=== PATIENT | male | born 1980 | race Caucasian/White ===

== ENCOUNTER 2016-12-25 18:57 | Inpatient (IN) | payer BC ==
[2016-12-25 19:01] VITALS: BMI 31.6
[2016-12-25] MEDS ORDERED: ASPIRIN 81 MG CHEWABLE TABLETS PO ONE (19:16)
--- NOTE | 2016-12-25 19:16 | PDOC ---
History of Present Illness <Nilsa Root - Last Filed: 12/25/16 19:49> <Mary Kay Cisneros - Last Filed: 12/26/16 02:39> - General Chief Complaint: Blood Pressure Problem Stated Complaint: HTN. Time Seen by Provider: 12/25/16 19:11 - History of Present Illness Initial Comments: 12/25/16 19:43 The patient is a 36 year old male, with a significant past medical history of panic attacks, IDDM (8yrs), HTN (lisinopril), who presents to the emergency department with chest discomfort since yesterday with onset of palpitations and dyspnea today. The patient reports his chest discomfort feels like pressure today opposed to tightness yesterday. He states the discomfort is constant and anterior, without radiation of pain into upper extremities. He reports feeling "unable to take a deep breath." He reports he has been under a lot of stress recently. He reports being given 20 mg of bystolic around 6PM this evening in Dr. Romano office. The patient also had a normal stress test last year. She denies headache and dizziness. She denies fever, chills, nausea, vomit, diarrhea and constipation. She denies dysuria, frequency, urgency and hematuria. Allergies: NKDA Social history: denies tobacco use PCP - Dr. Hernandez (Nilsa Root) Past History <Nilsa Root - Last Filed: 12/25/16 19:49> - Past Medical History Anemia: No Asthma: No Cancer: No Cardiac Disorders: No CVA: No COPD: No CHF: No Dementia: No Diabetes: Yes GI Disorders: No Disorders: No HTN: Yes Hypercholesterolemia: No Liver Disease: No Seizures: No Thyroid Disease: No - Suicide/Smoking/Psychosocial Hx Smoking Status: Yes Smoking History: Former smoker Have you smoked in the past 12 months: No Number of Cigarettes Smoked Daily: 10 If you are a former smoker, when did you quit?: 2013 Information on smoking cessation initiated: No 'Breaking Loose' booklet given: 12/25/16 Hx Alcohol Use: No Drug/Substance Use Hx: No Substance Use Type: None <Mary Kay Cisneros - Last Filed: 12/26/16 02:39> - Past Medical History Allergies/Adverse Reactions: Allergies Allergy/AdvReac Type Severity Reaction Status Date / Time No Known Allergies Allergy Verified 12/25/16 19:01 Home Medications: Ambulatory Orders Insulin (Novolog) [Novolog Flexpen] 0 units SQ ACHS 12/25/16 Insulin Glargine,Hum.rec.anlog [Toujeo Solostar] 0 unit SQ DAILY 12/25/16 Lisinopril/Hydrochlorothiazide [Lisinopril-Hctz 20-12.5 mg Tab] 1 each PO DAILY 12/25/16 Simvastatin 20 mg PO HS 12/25/16 Cardiac Specific PMH - Complaint Specific PMHX Pacemaker: No <Mary Kay Cisneros - Last Filed: 12/26/16 02:39> Review of Systems - Review of Systems Able to Perform ROS?: Yes <Nilsa Root - Last Filed: 12/25/16 19:49> <Mary Kay Cisneros - Last Filed: 12/26/16 02:39> - Review of Systems Comments:: 12/25/16 19:44 CONSTITUTIONAL: Absent: fever, chills, diaphoresis, generalized weakness, malaise, loss of appetite HEENT: Absent: rhinorrhea, nasal congestion, throat pain, throat swelling, difficulty swallowing, mouth swelling, ear pain, eye pain, visual Changes CARDIOVASCULAR: (+) chest pressure and tightness.palpitations, Absent: syncope, irregular heart rate, lightheadedness, peripheral edema RESPIRATORY: (+) SOB. Absent: cough, dyspnea with exertion, orthopnea, wheezing, stridor, hemoptysis GASTROINTESTINAL: Absent: abdominal pain, abdominal distension, nausea, vomiting, diarrhea, constipation, melena, hematochezia GENITOURINARY: Absent: dysuria, frequency, urgency, hesitancy, hematuria, flank pain, genital pain MUSCULOSKELETAL: Absent: myalgia, arthralgia, joint swelling SKIN: Absent: rash, itching, pallor HEMATOLOGIC/IMMUNOLOGIC: Absent: easy bleeding, easy bruising, lymphadenopathy, frequent infections ENDOCRINE: Absent: unexplained weight gain, unexplained weight loss, heat intolerance, cold intolerance NEUROLOGIC: Absent: headache, focal weakness or paresthesias, dizziness, unsteady gait, seizure, mental status changes, bladder or bowel incontinence PSYCHIATRIC: Absent: anxiety, depression, suicidal or homicidal ideation, hallucinations. (Nilsa Root) *Physical Exam <Nilsa Root - Last Filed: 12/25/16 19:49> <Mary Kay Cisneros - Last Filed: 12/26/16 02:39> - Vital Signs Last Vital Signs Temp Pulse Resp BP Pulse Ox 98.7 F 85 20 133/85 100 12/25/16 22:40 12/25/16 22:40 12/25/16 22:40 12/25/16 22:40 12/25/16 22:25 - Physical Exam Comments: 12/25/16 19:45 GENERAL: Well developed, well nourished. Awake and alert. No acute distress. HEENT: Normocephalic, atraumatic. PERRLA, EOMI. No conjunctival pallor. Sclera are non- icteric. Moist mucous membranes. Oropharynx is clear. NECK: Supple. Full ROM. No JVD. Carotid pulses 2+ and symmetric, without bruits. No thyromegaly. No lymphadenopathy. CARDIOVASCULAR: (+) tachycardic. Regular rhythm. No murmurs, rubs, or gallops. Distal pulses are 2+ and symmetric. PULMONARY: (+) dyspneic but speaking in full sentences. Lungs clear to auscultation bilaterally. No wheezing, rales or rhonchi. ABDOMINAL: Soft. Non-tender. Non-distended. No rebound or guarding. No organomegaly. Normoactive bowel sounds. MUSCULOSKELETAL Normal range of motion at all joints. No bony deformities or tenderness. No CVA tenderness. EXTREMITIES: No cyanosis. No clubbing. No edema. No calf tenderness. SKIN: Warm and dry. Normal capillary refill. No rashes. No jaundice. NEUROLOGICAL: Alert, awake, appropriate. Cranial nerves 2-12 intact. Normoreflexic in the upper and lower extremities. Normal speech. Toes are down-going bilaterally. Gait is normal without ataxia. PSYCHIATRIC: Cooperative. Good eye contact. Appropriate mood and affect. (Nilsa Root) Heart Score/ECG Review <Nilsa Root - Last Filed: 12/25/16 19:49> - History History: Slightly suspicious - Electrocardiogram EKG: Normal - Age Age: </= 45 - Risk Factors Risk Factors Heart Score: Yes Hx Hypertension, Yes Hx Diabetes Based on the list above the patient has:: 1-2 risk factors - Troponin Troponin: </= normal limit - Score Heart Score - Total: 1 <BlayneMary Kay Hernandez - Last Filed: 12/26/16 02:39> - ECG Intrepretation Comment:: 12/25/16 19:51 EKG was read by Dr. Cisneros at 19:11 Impression: Sinus tachycardia Vent rate: 104 bpm MA Interval: 144 ms QTc: 457 ms (Nilsa Root) ED Treatment Course - LABORATORY CBC & Chemistry Diagram: 12/25/16 19:35 12/25/16 19:35 <Mary Kay Cisneros - Last Filed: 12/26/16 02:39> - ADDITIONAL ORDERS Additional order review: Laboratory Results 12/25/16 12/25/16 12/25/16 19:35 19:35 14:35 PT with INR 11.70 INR 1.06 D-Dimer < 200 Sodium 128 L Potassium 3.9 Chloride 93 L Carbon Dioxide 22 Anion Gap 13 BUN 8 Creatinine 0.9 Creat Clearance w eGFR > 60 Random Glucose 217 H Calcium 9.1 Magnesium 1.9 Total Bilirubin 1.0 AST 29 ALT 43 Alkaline Phosphatase 79 Creatine Kinase 212 Creatine Kinase Index 1.1 CK-MB (CK-2) 2.451 Troponin I < 0.02 Total Protein 7.7 Albumin 4.3 12/25/16 19:35 RBC 5.07 MCV 87.0 MCHC 33.6 RDW 12.9 MPV 9.3 Neutrophils % 82.8 Lymphocytes % 10.7 Monocytes % 5.5 Eosinophils % 0.6 Basophils % 0.4 - RADIOLOGY Radiology Studies Ordered: Category Date Time Status CHEST X-RAY PORTABLE* [RAD] Stat Radiology 12/25/16 19:16 Completed - Medications Given in the ED: ED Medications Discontinued Medications Generic Name Dose Route Start Last Admin Trade Name Freq PRN Reason Stop Dose Admin Amlodipine Besylate 5 mg 12/25/16 21:09 12/25/16 23:14 Norvasc - PO 12/25/16 21:10 5 mg ONCE ONE Administration Aspirin 162 mg 12/25/16 19:16 12/25/16 19:50 Asa - PO 12/25/16 19:17 162 mg ONCE ONE Administration Metoprolol Tartrate 25 mg 12/25/16 19:36 12/25/16 19:50 Lopressor - PO 12/25/16 19:37 25 mg ONCE ONE Administration Medical Decision Making <Nilsa Root - Last Filed: 12/25/16 19:49> <Mary Kay Cisneros - Last Filed: 12/26/16 02:39> - Medical Decision Making 12/26/16 02:38 36 yo male w chest tightness, admitted for cards consult and r/o VT -first trop is negative (Mary Kay Cisneros) *DC/Admit/Observation/Transfer <Nilsa Root - Last Filed: 12/25/16 19:49> - Discharge Dispostion Admit: Yes <Mary Kay Cisneros - Last Filed: 12/26/16 02:39> Diagnosis at time of Disposition: Chest pain Qualifiers: Chest pain type: precordial pain Qualified Code(s): R07.2 - Precordial pain - Attestations Scribe Attestion: 12/25/16 19:48 Documentation prepared by Nilsa Root, acting as er medical technician for Mary Kay Cisneros MD (Nilsa Root)
[2016-12-25] MEDS ORDERED: METOPROLOL TARTRATE 25 MG TABLET (FP) PO ONE (19:36)
[2016-12-25] MEDS ORDERED: METOPROLOL TARTRATE 25 MG TABLET (FP) ONE (19:47)
[2016-12-25] MEDS ORDERED: ASPIRIN COATED 81 MG TABLET.EC ONE (19:47)
[2016-12-25 20:01] LABS: BASOPHIL 0.4 % (0-2.0); EOSINOPHIL 0.6 % (0-4.5); MCH 29.3 pg (25.7-33.7); MCHC 33.6 g/dl (32.0-35.9); MEAN PLT VOLUME 9.3 fl (7.5-11.1); NEUTROPHILS 82.8 % (42.8-82.8); PLATELET COUNT 270 K/MM3 (134-434); RDW 12.9 % (11.9-15.9)
[2016-12-25 20:14] LABS: INR 1.06 (0.82-1.09); PROTHROMBIN TIME (PATIENT) 11.7 SEC (9.98-11.88)
[2016-12-25 20:27] LABS: ALBUMIN 4.3 g/dl (3.4-5.0); ANION GAP 13 (8-16); CALCIUM 9.1 mg/dL (8.5-10.1); CO2 22 mmol/L (21-32); CREATININE 0.9 mg/dL (0.7-1.3); GLUCOSE,RANDOM 217 mg/dL (74-106); MAGNESIUM 1.9 mg/dL (1.8-2.4); SGOT/AST 29 U/L (15-37); SGPT/ALT 43 U/L (12-78); TOT PROT 7.7 g/dl (6.4-8.2)
[2016-12-25 20:30] LABS: ALK PHOS 79 U/L (45-117); CPK 212 IU/L (39-308); TROPONIN I < 0.02 ng/ml (0.00-0.05)
[2016-12-25] MEDS ORDERED: ACETAMINOPHEN 325 MG TABLET (FP) PO PRN (21:00)
[2016-12-25] MEDS ORDERED: amLODIPine BESYLATE 5 MG TABLET (FP) PO ONE (21:09)
[2016-12-25] MEDS ORDERED: ATORVASTATIN CA 40 MG TABLET (FP) PO SCH (22:00)
[2016-12-25] MEDS ORDERED: HEPARIN NA (PORCINE) 5,000 UNITS/ML 1ML VIAL ONE (22:06)
[2016-12-25] MEDS ORDERED: amLODIPine BESYLATE 5 MG TABLET (FP) ONE (22:06)
[2016-12-25] MEDS ORDERED: ATORVASTATIN CA 40 MG TABLET (FP) ONE (22:06)
--- NOTE | 2016-12-25 22:13 | HP ---
Admitting History and Physical - Admission History of Present Illness: 36 year old male, with a significant past medical history of panic attacks, IDDM (8yrs), HTN (lisinopril), who presents to the emergency department with chest discomfort since yesterday with onset of palpitations and dyspnea today. The patient reports his chest discomfort feels like pressure today opposed to tightness yesterday. He states the discomfort is constant and anterior, without radiation of pain into upper extremities. He reports feeling "unable to take a deep breath." He reports he has been under a lot of stress recently. He reports being given 20 mg of bystolic around 6PM this evening in Dr. Romano office. The patient also had a normal stress test last year. - Past Medical History Cardiovascular: Yes: HTN, Hyperlipdemia Endocrine: Yes: Diabetes Mellitus - Smoking History Smoking history: Former smoker Have you smoked in the past 12 months: No Aproximately how many cigarettes per day: 10 If you are a former smoker, when did you quit?: 2012 - Alcohol/Substance Use Hx Alcohol Use: No Home Medications - Allergies Allergies/Adverse Reactions: Allergies Allergy/AdvReac Type Severity Reaction Status Date / Time No Known Allergies Allergy Verified 12/25/16 19:01 - Home Medications Home Medications: Ambulatory Orders Insulin (Novolog) [Novolog Flexpen] 0 units SQ ACHS 12/25/16 Insulin Glargine,Hum.rec.anlog [Toujeo Solostar] 0 unit SQ DAILY 12/25/16 Lisinopril/Hydrochlorothiazide [Lisinopril-Hctz 20-12.5 mg Tab] 1 each PO DAILY 12/25/16 Simvastatin 20 mg PO HS 12/25/16 Review of Systems - Review of Systems Cardiovascular: reports: Chest Pain. denies: Palpitations, Shortness of Breath Respiratory: denies: SOB, SOB on Exertion Gastrointestinal: reports: No Symptoms Genitourinary: reports: No Symptoms Neurological: reports: No Symptoms Physical Examination Vital Signs: Vital Signs Temperature 97.7 F 12/25/16 18:59 Pulse Rate 108 H 12/25/16 18:59 Respiratory Rate 18 12/25/16 18:59 Blood Pressure 155/90 12/25/16 18:59 O2 Sat by Pulse Oximetry (%) 100 12/25/16 18:59 Cardiovascular: Yes: Regular Rate and Rhythm Respiratory: Yes: Regular, CTA Bilaterally Gastrointestinal: Yes: Normal Bowel Sounds, Soft. No: Tenderness Edema: No Imaging - Results X-ray: Report Reviewed Problem List - Problems (1) Chest pain Assessment/Plan: FOLLOW CE CT OF CHEST CE TELE CARDIO ECHO STRESS TEST Code(s): R07.9 - CHEST PAIN, UNSPECIFIED Qualifiers: Chest pain type: precordial pain Qualified Code(s): R07.2 - Precordial pain; R07.2 - Precordial pain (2) HTN (hypertension) Assessment/Plan: ADD NORVASC 5 MONITOR Code(s): I10 - ESSENTIAL (PRIMARY) HYPERTENSION (3) Diabetes Assessment/Plan: BGM ENDO Code(s): E11.9 - TYPE 2 DIABETES MELLITUS WITHOUT COMPLICATIONS
[2016-12-25] MEDS: HEPARIN NA (PORCINE) 5,000 UNITS/ML 1ML VIAL SQ SCH (22:37)
[2016-12-25] MEDS: INSULIN (NOVOLOG) ASPART 100 UNITS/ML 10ML VIAL SQ SCH (23:15)
[2016-12-26] MEDS: INSULIN (NOVOLOG) ASPART 100 UNITS/ML 10ML VIAL SQ SCH ×3 (06:14→17:06)
[2016-12-26 06:36] LABS: BASOPHIL 0.5 % (0-2.0); MCH 28.6 pg (25.7-33.7); MCHC 33.5 g/dl (32.0-35.9); MEAN CELL VOLUME 85.6 fl (80-96); MEAN PLT VOLUME 9.1 fl (7.5-11.1); NEUTROPHILS 62.6 % (42.8-82.8); PLATELET COUNT 225 K/MM3 (134-434); WHITE BLOOD COUNT 9.2 K/mm3 (4.0-10.0)
[2016-12-26 07:18] LABS: ALBUMIN 3.9 g/dl (3.4-5.0); ALK PHOS 81 U/L (45-117); ANION GAP 13 (8-16); BILIRUBIN,TOTAL 1.2 mg/dL (0.2-1.0); CALCIUM 8.9 mg/dL (8.5-10.1); CO2 24 mmol/L (21-32); CPK 218 IU/L (39-308); CREATININE 0.8 mg/dL (0.7-1.3); GLUCOSE,RANDOM 242 mg/dL (74-106); SGOT/AST 20 U/L (15-37); SGPT/ALT 37 U/L (12-78); TROPONIN I < 0.02 ng/ml (0.00-0.05)
--- NOTE | 2016-12-26 07:50 | PN ---
Progress Note, Physician - Current Medication List Current Medications: Active Medications Acetaminophen (Tylenol -) 650 mg PO Q4H PRN PRN Reason: FEVER OR PAIN Aspirin (Ecotrin -) 81 mg PO DAILY [facility] Atorvastatin Calcium (Lipitor -) 40 mg PO HS [facility] Last Admin: 12/25/16 23:13 Dose: Not Given Heparin Sodium (Porcine) (Heparin -) 5,000 unit SQ BID ANG Last Admin: 12/25/16 22:37 Dose: 5,000 unit Insulin Aspart (Novolog Vial) 0 units SQ ACHS ANG PRN Reason: Protocol Last Admin: 12/26/16 06:14 Dose: 5 units Lisinopril (Prinivil) 20 mg PO DAILY [facility] Metoprolol Tartrate (Lopressor -) 25 mg PO DAILY ANG Pantoprazole Sodium (Protonix -) 40 mg PO DAILY [facility] - Objective Vital Signs: Vital Signs Temperature 98.5 F 12/26/16 06:00 Pulse Rate 77 12/26/16 06:00 Respiratory Rate 18 12/26/16 06:00 Blood Pressure 119/71 12/26/16 06:00 O2 Sat by Pulse Oximetry (%) 100 12/25/16 22:25 Cardiovascular: Yes: Regular Rate and Rhythm Respiratory: Yes: Regular, CTA Bilaterally Gastrointestinal: Yes: Normal Bowel Sounds, Soft Labs: CBC, BMP 12/26/16 06:05 12/26/16 06:05 INR, PTT INR 1.06 (0.82-1.09) 12/25/16 19:35 Problem List - Problems (1) Chest pain Assessment/Plan: CT OF CHEST--negative CE trop neg x 3 TELE CARDIO ECHO STRESS TEST Code(s): R07.9 - CHEST PAIN, UNSPECIFIED Qualifiers: Chest pain type: precordial pain Qualified Code(s): R07.2 - Precordial pain; R07.2 - Precordial pain (2) HTN (hypertension) Assessment/Plan: ADD NORVASC 5 MONITOR Code(s): I10 - ESSENTIAL (PRIMARY) HYPERTENSION (3) Diabetes Assessment/Plan: M ENDO Code(s): E11.9 - TYPE 2 DIABETES MELLITUS WITHOUT COMPLICATIONS
[2016-12-26] MEDS ORDERED: NITROGLYCERIN SUBLINGUAL 1/150 0.4 MG TAB ONE (07:52)
[2016-12-26] MEDS ORDERED: NITROGLYCERIN SUBLINGUAL 1/150 0.4 MG TAB SL ONE (09:30)
[2016-12-26] MEDS ORDERED: ASPIRIN COATED 81 MG TABLET.EC PO SCH (10:00)
[2016-12-26] MEDS ORDERED: LISINOPRIL 20 MG TABLET (FP) PO SCH (10:00)
[2016-12-26] MEDS ORDERED: METOPROLOL TARTRATE 25 MG TABLET (FP) PO SCH (10:00)
[2016-12-26] MEDS ORDERED: PANTOPRAZOLE 40 MG TABLET (FP) PO SCH (10:00)
--- NOTE | 2016-12-26 10:54 | EKG ---
Test Reason : Blood Pressure : / mmHG Vent. Rate : 082 BPM Atrial Rate : 082 BPM P-R Int : 144 ms QRS Dur : 084 ms QT Int : 372 ms P-R-T Axes : 019 064 043 degrees QTc Int : 434 ms NORMAL SINUS RHYTHM NORMAL ECG WHEN COMPARED WITH ECG OF 25-DEC-2016 19:11, NONSPECIFIC T WAVE ABNORMALITY NO LONGER EVIDENT IN LATERAL LEADS Confirmed by CHRISTINA QUIROZ, PARMJIT ([id number]) on 12/26/2016 10:53:57 AM Referred By: Confirmed By:PARMJIT VASQUEZ MD
[2016-12-26] MEDS ORDERED: INSULIN (NOVOLOG) ASPART 100 UNITS/ML 10ML VIAL ONE ×2 (11:51→16:52)
[2016-12-26] MEDS: HEPARIN NA (PORCINE) 5,000 UNITS/ML 1ML VIAL SQ SCH (12:00)
--- NOTE | 2016-12-26 12:00 | EKG ---
Test Reason : Blood Pressure : / mmHG Vent. Rate : 104 BPM Atrial Rate : 104 BPM P-R Int : 144 ms QRS Dur : 078 ms QT Int : 348 ms P-R-T Axes : 065 072 037 degrees QTc Int : 457 ms SINUS TACHYCARDIA OTHERWISE NORMAL ECG WHEN COMPARED WITH ECG OF 07-JAN-2009 09:22, NO SIGNIFICANT CHANGE WAS FOUND Confirmed by PARMJIT VASQUEZ MD ([id number]) on 12/26/2016 12:00:05 PM Referred By: Confirmed By:PARMJIT VASQUEZ MD
--- NOTE | 2016-12-26 14:16 | CON.CARD ---
Consult Consult Specialty:: Cardiology Referred by:: Yesenia Steele Reason for Consultation:: Chest pain - History of Present Illness Chief Complaint: Chest pain History of Present Illness: 36 year old male with a pmhx of DM type 1 for 28 years and anxiety who presents with chest pain. Patient yesterday awoke with some mild chest tightness. Symptoms progressively worsened during the day and peaked at 8/10. Non- radiating, no sob or diaphoresis. No palpitations. No pnd, orthopnea, or edema. Chest pain resolved while in the ER. Currently without any complaints. - History Source History Provided By: Patient, Medical Record - Past Medical History Cardio/Vascular: Yes: HTN, Hyperlipdemia Endocrine: Yes: Diabetes Mellitus - Alcohol/Substance Use Hx Alcohol Use: No - Smoking History Smoking history: Former smoker Have you smoked in the past 12 months: No Aproximately how many cigarettes per day: 10 If you are a former smoker, when did you quit?: 2012 Home Medications - Allergies Allergies/Adverse Reactions: Allergies Allergy/AdvReac Type Severity Reaction Status Date / Time No Known Allergies Allergy Verified 12/25/16 19:01 - Home Medications Home Medications: Ambulatory Orders Insulin (Novolog) [Novolog Flexpen] 0 units SQ ACHS 12/25/16 Insulin Glargine,Hum.rec.anlog [Toujeo Solostar] 0 unit SQ DAILY 12/25/16 Lisinopril/Hydrochlorothiazide [Lisinopril-Hctz 20-12.5 mg Tab] 1 each PO DAILY 12/25/16 Simvastatin 20 mg PO HS 12/25/16 Vital Signs: Vital Signs Temperature 98 F 12/26/16 10:00 Pulse Rate 84 12/26/16 10:00 Respiratory Rate 18 12/26/16 10:00 Blood Pressure 120/64 12/26/16 10:00 O2 Sat by Pulse Oximetry (%) 99 12/26/16 09:00 Constitutional: Yes: No Distress Neck: Yes: WNL Respiratory: Yes: CTA Bilaterally Gastrointestinal: Yes: Normal Bowel Sounds, Soft Cardiovascular: Yes: WNL, Regular Rate and Rhythm JVD: No Carotid Bruit: No Heart Sounds: Yes: S1, S2 Murmur: No: Systolic Murmur Edema: No - Other Data Labs, Other Data: CBC, BMP 12/26/16 06:05 12/26/16 06:05 INR, PTT INR 1.06 (0.82-1.09) 12/25/16 19:35 Troponin, BNP 12/25/16 12/26/16 21:34 06:05 Troponin I < 0.02 < 0.02 Troponin, BNP 12/25/16 12/26/16 21:34 06:05 Troponin I < 0.02 < 0.02 Imaging - Results X-ray: Report Reviewed EKG: Image Reviewed Problem List - Problems (1) Chest pain Code(s): R07.9 - CHEST PAIN, UNSPECIFIED Qualifiers: Chest pain type: precordial pain Qualified Code(s): R07.2 - Precordial pain; R07.2 - Precordial pain Assessment/Plan 36 year old male with a pmhx of DM type 1 for 28 years and anxiety who presents with chest pain. Patient yesterday awoke with some mild chest tightness. Symptoms progressively worsened during the day and peaked at 8/10. Non- radiating, no sob or diaphoresis. No palpitations. No pnd, orthopnea, or edema. Chest pain resolved while in the ER. Currently without any complaints. CT chest with no PE 1) Chest pain -Chest pain with nuclear stress test with moderate sized inferior wall ischemia in a 36 year old with long standing diabetes and strong family history (dad and mom with stents and grandfather with CABG). -Plan for cardiac cath tomorrow. Possibly at [facility]. Patient is discussing with his family. -Continue aspirin/high dose atorvastatin/beta erick No chest pain at this time. EKG today normal EKG yesterday with some subtle inferolateral ST changes. Continue to monitor on tele.
[2016-12-26 15:51] VITALS: BP 137/76; PULSE 74; TEMP 98.4
--- NOTE | 2016-12-27 01:15 | CONSULT ---
Consult Consult Specialty:: endocrine Referred by:: dr.annabi lao Reason for Consultation:: diabetes mellitus - History of Present Illness History of Present Illness: 36 y male pmh iddm,htn,hyperlipidemia,ex smoker,has had cp since yesterday substernal non radiating,heaviness bp was elevated despite taking bystolic 20mg, admitted for persistant cp,has had labile bs despite diet control, denies hypoglycemia,nv - History Source History Provided By: Patient - Past Medical History Cardio/Vascular: Yes: HTN, Hyperlipdemia Endocrine: Yes: Diabetes Mellitus - Alcohol/Substance Use Hx Alcohol Use: No - Smoking History Smoking history: Former smoker Have you smoked in the past 12 months: No Aproximately how many cigarettes per day: 10 If you are a former smoker, when did you quit?: 2012 Home Medications - Allergies Allergies/Adverse Reactions: Allergies Allergy/AdvReac Type Severity Reaction Status Date / Time No Known Allergies Allergy Verified 12/25/16 19:01 - Home Medications Home Medications: Ambulatory Orders Insulin (Novolog) [Novolog Flexpen] 0 units SQ ACHS 12/25/16 Insulin Glargine,Hum.rec.anlog [Toujeo Solostar] 0 unit SQ DAILY 12/25/16 Lisinopril/Hydrochlorothiazide [Lisinopril-Hctz 20-12.5 mg Tab] 1 each PO DAILY 12/25/16 Simvastatin 20 mg PO HS 12/25/16 Review of Systems - Review of Systems Constitutional: reports: Weakness HENT: reports: No Symptoms Neck: reports: No Symptoms Cardiovascular: reports: Shortness of Breath Respiratory: reports: Exercise Intolerance, SOB on Exertion Gastrointestinal: reports: Bloating Genitourinary: reports: No Symptoms Breasts: reports: No Symptoms Reported Musculoskeletal: reports: No Symptoms Integumentary: reports: No Symptoms Neurological: reports: No Symptoms Physical Exam Vital Signs: Vital Signs Temperature 98.4 F 12/26/16 14:00 Pulse Rate 74 12/26/16 14:00 Respiratory Rate 18 12/26/16 10:00 Blood Pressure 137/76 12/26/16 14:00 O2 Sat by Pulse Oximetry (%) 99 12/26/16 09:00 Constitutional: Yes: Anxious Eyes: Yes: EOM Intact HENT: Yes: Normocephalic Neck: Yes: Trachea Midline Cardiovascular: Yes: Regular Rate and Rhythm Respiratory: Yes: CTA Bilaterally, Tachypnea Gastrointestinal: Yes: Normal Bowel Sounds ...Rectal Exam: Yes: Deferred Renal/: Yes: WNL Breast(s): Yes: WNL Musculoskeletal: Yes: WNL Extremities: Yes: WNL Edema: No Neurological: Yes: Alert, Oriented Labs: CBC, BMP 12/26/16 06:05 12/26/16 06:05 Assessment/Plan Current Active Problems Chest pain (Acute) Diabetes (Acute) HTN (hypertension) (Acute) diabetes mellitus iddm hyperglycemia Abnormal Lab Results 12/26/16 12/26/16 06:05 06:05 Sodium 131 L Chloride 94 L BUN 6 L D Random Glucose 242 H Hemoglobin A1c % 7.1 H Total Bilirubin 1.2 H Laboratory Results - last 24 hr 12/26/16 12/26/16 12/26/16 06:05 06:05 06:05 WBC 9.2 D RBC 5.14 Hgb 14.7 Hct 44.0 MCV 85.6 MCH 28.6 MCHC 33.5 RDW 13.0 Plt Count 225 MPV 9.1 Neutrophils % 62.6 D Lymphocytes % 29.1 D Monocytes % 5.8 Eosinophils % 2.0 D Basophils % 0.5 Sodium 131 L Potassium 3.9 Chloride 94 L Carbon Dioxide 24 Anion Gap 13 BUN 6 L D Creatinine 0.8 Creat Clearance w eGFR > 60 POC Glucometer Random Glucose 242 H Hemoglobin A1c % 7.1 H Calcium 8.9 Total Bilirubin 1.2 H AST 20 D ALT 37 Alkaline Phosphatase 81 Creatine Kinase 218 Creatine Kinase Index 1.3 CK-MB (CK-2) 2.924 Troponin I < 0.02 Total Protein 7.0 Albumin 3.9 12/26/16 12/26/16 12/26/16 06:09 11:57 15:53 WBC RBC Hgb Hct MCV MCH MCHC RDW Plt Count MPV Neutrophils % Lymphocytes % Monocytes % Eosinophils % Basophils % Sodium Potassium Chloride Carbon Dioxide Anion Gap BUN Creatinine Creat Clearance w eGFR POC Glucometer 287 362 269 Random Glucose Hemoglobin A1c % Calcium Total Bilirubin AST ALT Alkaline Phosphatase Creatine Kinase Creatine Kinase Index CK-MB (CK-2) Troponin I Total Protein Albumin plan: insulin coverage novolog insulin novolog 70 /30 25 units bid ck hba1c cardiac workup as planned
== END 2016-12-26 17:30 | disposition short-term general hospital (02) | DRG 303 ==
LOC: JER 18:57 → JERBED 20:41 → J4W 22:36
PROVIDERS: ADMIT Family Medicine; ATTEND Family Medicine
DX: I25.119 Atherosclerotic heart disease of native coronary artery with unspecified angina pectoris (principal); I24.9 Acute ischemic heart disease, unspecified; R07.9 Chest pain, unspecified; I10 Essential (primary) hypertension; E78.5 Hyperlipidemia, unspecified; Z79.4 Long term (current) use of insulin; Z87.891 Personal history of nicotine dependence; E10.65 Type 1 diabetes mellitus with hyperglycemia
CPT/HCPCS: 36415; 71010-TC; 71275-TC; 78452-TC; 80053; 82550; 82553; 83036; 83735; 84484; 85025; 85379; 85610; 93005; 93010; 93017; 93306-TC; 99285-25; A9502; J1644